=== PATIENT | male | born 1955 | race Two or more races ===

== ENCOUNTER 2019-01-19 16:16 | Emergency (ER) | payer MEDICAID, OTHER ==
[~2019-01-19] VITALS: Ht 167.6 cm; Wt 68.0 kg
[2019-01-19 16:30] VITALS: BP 172/99
[2019-01-19] MEDS: HYDROCODONE/APAP 5/325MG 1 EACH TABLET PO ONE ×2 (17:30→18:20)
[2019-01-19] MEDS ORDERED: HYDROCODONE/APAP 5/325MG 1 EACH TABLET ONE (18:31)
== END 2019-01-19 18:45 | disposition home or self-care (01) ==
LOC: ER 16:22
DX: S93.491A Sprain of other ligament of right ankle, initial encounter (principal); Z60.2 Problems related to living alone; X50.1XXA Overexertion from prolonged static or awkward postures, initial encounter; Y93.01 Activity, walking, marching and hiking; Y92.89 Other specified places as the place of occurrence of the external cause; Y99.8 Other external cause status
CPT/HCPCS: 73610-TC; 73630-TC